=== PATIENT | female | born 2000 | race Caucasian/White ===

== ENCOUNTER 2024-11-10 12:44 | Emergency (ER) | payer OTHER ==
--- OUTSIDE RECORDS SUMMARY | 2024-11-10 12:46 | XMS REPORT | Continuity of Care Document ---
Author Name Unknown Address [address] [place] [address] [address] [facility] [place] [address] Care Team Providers Care Lamp Shades Supervisor Name Role Phone Adelita Talbot Attending Clinician Unavailable Encounters Start Date/Time End Date/Time Encounter Type Admission Type Attending Clinicians Care Facility Care Department Encounter ID Source 2022-10-13 15:01:01 Outpatient Adelita Talbot [facility] [id number] [facility]
[2024-11-10 13:33] LABS: Specific Gravity 1.026 (1.005-1.030)
[2024-11-10 13:36] LABS: Specific Gravity 1.026 (1.005-1.030); Sqamous Epithelial None Seen /HPF (None Seen); Urine Bacteria None Seen /HPF (<20); Urine Bilirubin NEGATIVE (Negative); Urine Blood 2+ (Negative); Urine Clarity Extremely Turbid (Clear); Urine Color Light-Orange (Yellow); Urine Culture Reflex Order NOT NEEDED; Urine Glucose TRACE (Negative); Urine Ketones 2+ (Negative); Urine Microscopic Reflex YN ORDER UMIC; Urine Mucus Slight /HPF (None Seen); Urine Nitrite NEGATIVE (Negative); Urine Protein 1+ (Negative); Urine RBC 21-50 /HPF (None Seen); Urine Urobilinogen Normal (Normal); Urine WBC <5 /HPF (<5)
--- NOTE | 2024-11-10 13:40 | RAD REPORT ---
EXAM: Chest Single View HISTORY: 24 years Female DYSPNEA COMPARISON: 09/21/21 FINDINGS: LUNGS/PLEURA: The lungs are clear. No pleural effusions or pneumothorax. No pulmonary edema. CARDIAC/MEDIASTINUM: The cardiac silhouette is within normal limits. UPPER ABDOMEN: No significant abnormality. BONES: No acute abnormality. LINES/TUBES/OTHER: N/A IMPRESSION: No evidence of acute cardiopulmonary disease.
[2024-11-10 13:53] LABS: Absolute Lymphocytes (CBC) 0.7 K/uL (0.7-4.9); Absolute Monocytes 0.2 K/uL (0.1-1.3); Absolute Neutrophil 10.2 K/uL (1.8-8.0); Basophils % 0.4 % (0-1.3); Eosinophils % 0.2 % (0-4.4); Hematocrit 38.7 % (36.0-45.0); Hemoglobin 13.3 g/dL (12.0-15.0); Lymphocytes % 6.3 % (15.3-44.8); MCH 29.8 pg (27.0-35.0); MCHC 34.3 g/dL (32.0-36.0); MCV 86.9 fL (80-100); MPV 8.6 fL (7.6-11.3); Monocytes % 2.1 % (3.3-12.3); Nucleated Red Blood Cells % 0.1 % (0-0); Platelets 268 thou/uL (152-406); RBC Red Blood Cell Count 4.46 M/uL (3.86-4.86); Red Cell Distribution Width 12.7 % (12.1-15.2)
[2024-11-10] MEDS ORDERED: ONDANSETRON 4 MG/2 ML VIAL ONE (13:59)
[2024-11-10] MEDS ORDERED: NA CHLORIDE 0.9% 1,000 ML ONE (14:00)
[2024-11-10] MEDS ORDERED: FAMOTIDINE 20 MG/2 ML VIAL IV ONE (14:00)
[2024-11-10 14:11] LABS: Albumin 4.4 g/dL (3.4-5.0); Albumin/Globulin Ratio 1.4 (1.1-1.8); Anion Gap 11.5 mEq/L (5.0-15.0); Bilirubin Total 0.4 mg/dL (0.2-1.0); Globulin 3.1 g/dL (2.3-3.5); Potassium 3.5 mEq/L (3.5-5.1); Protein, Total 7.5 g/dL (6.4-8.2)
--- NOTE | 2024-11-10 14:37 | RAD REPORT ---
EXAMINATION: Abdomen Pelvis W Contrast CLINICAL INDICATION: Female, 24 years old.Abd pain;Nausea / vomiting TECHNIQUE: CT abdomen and pelvis was performed, after the administration of IV contrast, as per [facility] protocol. Axial, sagittal and coronal reconstructions were obtained. One or more of the following dose reduction techniques were used: Automated exposure control, adjustment of the mA and/o r kV according to patient size, and/or iterative reconstruction. Unless otherwise specified, incidental findings do not require dedicated imaging follow-up. [id number]. COMPARISON: No prior exam. FINDINGS: LOWER CHEST: No acute process identified.No significant pericardial effusion. UPPER GI: No significant abnormality. LIVER: No significant focal abnormality. GALLBLADDER/BILE DUCTS: No biliary ductal dilatation.? PANCREAS: No mass, ductal dilation, or khloe-pancreatic fluid. SPLEEN: Unremarkable. ADRENALS: No adrenal masses. KIDNEYS AND URETERS: No hydronephrosis.No suspicious renal mass.No renal calculi. ABDOMINAL AORTA AND OTHER VESSELS: Normal caliber aorta and IVC. PERITONEUM: Small volume of pelvic free fluid which is likely physiologic. LYMPH NODES: No pathologic lymphadenopathy. ABDOMINAL WALL: Unremarkable SMALL BOWEL/COLON: Question diffuse colonic wall thickening versus underdistention.Normal appendix. URINARY BLADDER: Underdistended but grossly unremarkable. REPRODUCTIVE ORGANS: No pathologic process. MUSCULOSKELETAL: No acute or suspicious osseous abnormality. ADDITIONAL FINDINGS: None. IMPRESSION: Possible mild colitis versus underdistended colon. Normal appendix. Mild pelvic free fluid is likely physiologic.
[2024-11-10] MEDS ORDERED: PROMETHAZINE INJ 25 MG/ML AMP ONE ×2 (15:08→16:14)
[2024-11-10] MEDS ORDERED: NA CHLORIDE 0.9% 500 ML ONE (15:08)
[2024-11-10] MEDS ORDERED: NA CHLORIDE 0.9% 50 ML ONE ×2 (15:08→16:14)
[2024-11-10] MEDS ORDERED: metroNIDAZOLE 500 MG TABLET ONE (15:38)
[2024-11-10] MEDS ORDERED: CIPROFLOXACIN HCL 500 MG TAB ONE (15:38)
--- NOTE | 2024-11-10 15:55 | ER ---
Nurse's Notes [facility] Name: Elysia Morrow Age: 24 yrs Sex: Female : 2000 Arrival Date: 11/10/2024 Time: 12:44 Bed 13 Private MD: Diagnosis: Infectious gastroenteritis and colitis, unspecified Presentation: 11/10 13:12 Chief complaint: Patient states: she woke up this morning feeling to her base line, ap3 then started having abdominal pain that radiated up into her chest. patient also reports nausea and vomiting. patient reports she also started feeling short of breath. patient currently rates her pain as a 5/10 on the pain scale. Coronavirus screen: At this time, the client does not indicate any symptoms associated with coronavirus-19. Ebola Screen: No symptoms or risks identified at this time. Initial Sepsis Screen: Does the patient meet any 2 criteria? No. Patient's initial sepsis screen is negative. Does the patient have a suspected source of infection? No. Patient's initial sepsis screen is negative. Risk Assessment: Do you want to hurt yourself or someone else? Patient reports no desire to harm self or others. Onset of symptoms was November 10, 2024. 13:12 Method Of Arrival: Ambulatory ap3 13:12 Acuity: CAPRICE 3 ap3 Triage Assessment: 13:14 General: Appears ill, Behavior is calm, cooperative, appropriate for age. Pain: ap3 Complains of pain in chest and abdomen. Neuro: Level of Consciousness is awake, alert, obeys commands, Oriented to person, place, time, situation, Reports dizziness. Cardiovascular: Patient's skin is warm and dry. Respiratory: Airway is patent Respiratory effort is even, unlabored, Respiratory pattern is regular, symmetrical. GI: Reports nausea, vomiting. 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 Flu vaccine is not up to date. - Infectious Disease History:: Denies. - Social history:: Smoking status: Patient denies any tobacco usage or history of. - Family history:: not pertinent. - Hospitalizations: : No recent hospitalization is reported. Screenin:15 Abuse screen: Denies threats or abuse. Nutritional screening: No deficits noted. ap3 Tuberculosis screening: No symptoms or risk factors identified. 14:22 [facility] ED Fall Risk Assessment (Adult) History of falling in the last 3 months, cm10 including since admission No falls in past 3 months (0 pts) Confusion or Disorientation No (0 pts) Intoxicated or Sedated No (0 pts) Impaired Gait No (0 pts) Mobility Assist Device Used No (0 pt) Altered Elimination No (0 pt) Score/Fall Risk Level 0 - 2 = Low Risk Oriented to surroundings, Maintained a safe environment, Hourly rounding (assess needs \T\ fall precautionary measures) done. Assessment: 14:21 General: Appears in no apparent distress. uncomfortable, Behavior is calm, cooperative. cm10 Neuro: No deficits noted. Level of Consciousness is awake, alert, obeys commands, Oriented to person, place, time, situation, Appropriate for age. Respiratory: No deficits noted. Airway is patent Respiratory effort is even, unlabored, Respiratory pattern is regular, symmetrical. GI: Abdomen is flat, non-distended, Reports nausea, vomiting. Musculoskeletal: No deficits noted. Range of motion: intact in all extremities. 15:44 Reassessment: Patient appears in no apparent distress at this time. Patient is alert, cm10 oriented x 3, equal unlabored respirations, skin warm/dry/pink. Patient states feeling better. Patient states symptoms have improved. 16:10 Reassessment: UPON GOING TO DISCHARGE PATIENT, PATIENT NOTED TO HAVE VOMITED AGAIN. DR. cheri BEAL MADE AWARE. 17:10 Reassessment: Patient appears in no apparent distress at this time. Patient is alert, cm10 oriented x 3, equal unlabored respirations, skin warm/dry/pink. 18:20 Reassessment: Patient appears in no apparent distress at this time. Patient is alert, cm10 oriented x 3, equal unlabored respirations, skin warm/dry/pink. Patient states feeling better. Patient states symptoms have improved. Vital Signs: 13:12 BP 121 / 78; Pulse 49; Resp 18; Temp 98.8; Pulse Ox 100% on R/A; Weight 48.99 kg; ap3 Height 5 ft. 5 in. ; Pain 5/10; 14:19 BP 120 / 96; Pulse 61; Resp 18; Pulse Ox 100% ; cm10 15:00 BP 106 / 84; Pulse 79; Resp 15; Pulse Ox 100% ; cm10 15:30 BP 110 / 73; Pulse 64; Resp 15; Pulse Ox 99% ; cm10 16:00 BP 107 / 85; Pulse 55; Resp 13; Pulse Ox 100% on R/A; cm10 18:15 BP 127 / 87; Pulse 57; Resp 15; Pulse Ox 100% ; cm10 13:12 Body Mass Index 17.97 (48.99 kg, 165.1 cm) ap3 13:12 Pain Scale: Adult ap3 ED Course: 12:48 Patient arrived in ED. al6 12:49 Davis Beal MD is Attending Physician. rn 13:14 Triage completed. ap3 13:16 Arm band placed on right wrist. ap3 13:26 Patient has correct armband on for positive identification. Placed in gown. Bed in low ap3 position. Call light in reach. Side rails up X 1. Adult w/ patient. 13:26 Test, Urine Sent. ap3 13:26 Urinalysis w/ reflexes Sent. ap3 13:31 XRAY Chest (1 view) In Process Unspecified. EDMS 13:31 Client placed on continuous cardiac and pulse oximetry monitoring. NIBP monitoring ap3 applied. publicity expert on. Pulse ox on. NIBP on. 13:48 CBC with Diff Sent. cc6 13:48 CMP Sent. cc6 13:48 Lipase Sent. cc6 13:49 Initial lab(s) drawn, by me, sent to lab. EKG done, by ED staff, reviewed by Davis Beal MD. Inserted saline lock: 20 gauge in right antecubital area, using aseptic technique. Blood collected. Flushed with 10 mL NS. 13:54 Joanne Kay, RN is Primary Nurse. cm10 14:11 CT Abd/Pelvis - IV Contrast Only In Process Unspecified. EDMS 18:20 Provided Education on: Follow-up instructions. cm10 18:20 No provider procedures requiring assistance completed. IV discontinued, intact, cm10 bleeding controlled, No redness/swelling at site. Pressure dressing applied. Administered Medications: 14:17 Drug: Famotidine IVP 20 mg IVP once; dilute with 10 mL 0.9% NaCl; give over 2 minutes cm10 Route: IVP; Site: right antecubital; 15:04 Follow up: Response: No adverse reaction cm10 14:18 Drug: Ondansetron IVP 4 mg IVP once; over 2 minutes Route: IVP; Site: right antecubital;cm10 15:04 Follow up: Response: No adverse reaction cm10 14:18 Drug: NS 0.9% IV 1000 ml IV at 1 bolus Per protocol; to be given as a bolus over 60 cm10 minutes Route: IV; Rate: 1 bolus; Site: right antecubital; 15:04 Follow up: Response: No adverse reaction; IV Status: Completed infusion; IV Intake: cm10 1000ml 15:15 Drug: Promethazine IVP 12.5 mg IVP once Route: IVP; Site: right antecubital; cm10 15:43 Follow up: Response: No adverse reaction cm10 15:15 Drug: NS 0.9% IV 500 ml 500 ml IV at 1 bolus once; to be given as a bolus over 30 cm10 minutes Volume: 500 ml; Route: IV; Rate: 1 bolus; Site: right antecubital; 15:43 Follow up: Response: No adverse reaction; IV Status: Completed infusion; IV Intake: cm10 500ml 15:43 Drug: Ciprofloxacin PO 500 mg PO once Route: PO; cm10 16:01 Follow up: Response: No adverse reaction cm10 15:43 Drug: metroNIDAZOLE PO 500 mg PO once Route: PO; cm10 16:01 Follow up: Response: No adverse reaction cm10 16:01 Drug: Ondansetron Oral Disintegrating Tablet Oral Disintegrating Tablet 4 mg PO once cm10 Route: PO; 16:02 Follow up: Response: No adverse reaction cm10 16:18 Drug: Promethazine IVP 12.5 mg IVP once Route: IVP; Site: right antecubital; cm10 18:19 Follow up: Response: No adverse reaction cm10 Medication: 18:20 VIS not applicable for this client. cm10 Intake: 15:04 IV: 1000ml; Total: 1000ml. cm10 15:43 IV: 500ml; Total: 1500ml. cm10 Outcome: 15:54 Discharge ordered by rn 17:44 Discharge ordered by rn 18:20 Discharged to home ambulatory, with family, cm10 18:20 Condition: good 18:20 Discharge instructions given to patient, Instructed on discharge instructions, follow up and referral plans. medication usage, Demonstrated understanding of instructions, follow-up care, medications, Prescriptions given X 3, 18:21 Patient left the ED. cm10 Signatures: Dispatcher [employer] EDMS Davis Beal MD MD rn Prokisch, Amanda, RN RN ap3 Joanne Kay RN RN cm10 Cee Dailey cc6 Mady Hilario6 Corrections: (The following items were deleted from the chart) 13:15 13:12 Chief complaint: Patient states: she woke up this morning feeling to her base ap3 line, then started having abdominal pain that radiated up into her chest. patient reports she also started feeling short of breath. patient currently rates her pain as a 5/10 on the pain scale ap3
--- NOTE | 2024-11-10 15:55 | EDPHYS ---
Physician Documentation [facility] Name: Elysia Morrow Age: 24 yrs Sex: Female : 2000 Arrival Date: 11/10/2024 Time: 12:44 Bed 13 Private MD: ED Physician Davis Beal HPI: 11/10 14:34 This 24 yrs old Female presents to ER via Ambulatory with complaints of rn Nausea/Vomiting, Breathing Difficulty. 14:34 The patient presents to the emergency department with nausea. Onset: The rn symptoms/episode began/occurred this morning. The symptoms are aggravated by nothing. The symptoms are alleviated by nothing. The patient has experienced similar episodes in the past. Patient reports went to bed fine and woke up fine, shortly after waking up began to feel short of breath, feels like needs to take extra air at the end of her breathing. Also reports nausea and mild abdominal cramping. Patient started her menstrual cycle so not sure if she is having cramps related to menstruation. Patient states also this has happened a couple times in the past and has been told it was anxiety and feels very similar to those episodes. Denies any fever or chills. No blood in emesis or stool.. 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 Flu vaccine is not up to date. - Infectious Disease History:: Denies. - Social history:: Smoking status: Patient denies any tobacco usage or history of. - Family history:: not pertinent. - Hospitalizations: : No recent hospitalization is reported. ROS: 14:34 Constitutional: Negative for fever, chills, and weight loss, Cardiovascular: Negative rn for chest pain, palpitations, and edema, Respiratory: Negative for cough, positive for shortness of breath Abdomen/GI: Positive for nausea MS/Extremity: Negative for injury and deformity, Skin: Negative for injury, rash, and discoloration, Neuro: Negative for headache, weakness, numbness, tingling, and seizure, Exam: 14:34 Constitutional: This is a well developed, well nourished patient who is awake, alert, rn and in no acute distress. Ambulatory from bathroom without assistance or distress. Appears pale and thin Head/Face: Normocephalic, atraumatic. ENT: Dry mucous membranes Cardiovascular: Regular rate and rhythm. No pulse deficits. Respiratory: No increased work of breathing, no retractions or nasal flaring. Abdomen/GI: Soft, mid abdominal tenderness without rebound or guarding Neuro: Awake and alert, GCS 15 16:58 ECG was reviewed by the Attending Physician. rn Vital Signs: 13:12 BP 121 / 78; Pulse 49; Resp 18; Temp 98.8; Pulse Ox 100% on R/A; Weight 48.99 kg; ap3 Height 5 ft. 5 in. ; Pain 5/10; 14:19 BP 120 / 96; Pulse 61; Resp 18; Pulse Ox 100% ; cm10 15:00 BP 106 / 84; Pulse 79; Resp 15; Pulse Ox 100% ; cm10 15:30 BP 110 / 73; Pulse 64; Resp 15; Pulse Ox 99% ; cm10 16:00 BP 107 / 85; Pulse 55; Resp 13; Pulse Ox 100% on R/A; cm10 18:15 BP 127 / 87; Pulse 57; Resp 15; Pulse Ox 100% ; cm10 13:12 Body Mass Index 17.97 (48.99 kg, 165.1 cm) ap3 13:12 Pain Scale: Adult ap3 MDM: 12:49 Medical Screening Exam initiated rn 15:52 Differential diagnosis: Nonspecific abd pain, gastritis, cholecystitis, pancreatitis, rn appendicitis, diverticulitis, viral gastroenteritis, gastroenteritis. Data reviewed: vital signs, nurses notes, lab test result(s), radiologic studies, CT scan, and as a result, I will discharge patient. Data reviewed: radiologic studies, plain films. Counseling: I had a detailed discussion with the patient and/or guardian regarding the historical points, exam findings, and any diagnostic results supporting the discharge/admit diagnosis, lab results, radiology results, the need for outpatient follow up, to return to the emergency department if symptoms worsen or persist or if there are any questions or concerns that arise at home. Special discussion: I discussed with the patient/guardian in detail that at this point there is no indication for admission to the hospital. It is understood, however, that if the symptoms persist or worsen the patient needs to return immediately for re-evaluation. ED course: CT shows possible colitis. Patient feels much better with fluids and nausea medication. Able to tolerate fluids and antibiotics. Will discharge home with antibiotics and as needed Zofran with return precautions.. 16:56 ED course: Patient throughout when attempting to discharge. Cancel discharge and rn remedicated. Will continue to observe. 17:43 ED course: Patient states feels better now and wants to go home. Will discharge home rn with return precautions.. 11/10 13:10 Order name: CBC with Diff; Complete Time: 14:03 rn 11/10 13:10 Order name: CMP; Complete Time: 14:14 rn 11/10 13:10 Order name: Lipase; Complete Time: 14:14 rn 11/10 13:10 Order name: Test, Urine; Complete Time: 14:03 rn 11/10 13:10 Order name: Urinalysis w/ reflexes; Complete Time: 14:03 rn 11/10 13:10 Order name: CT Abd/Pelvis - IV Contrast Only; Complete Time: 14:45 rn 11/10 13:10 Order name: XRAY Chest (1 view); Complete Time: 14:03 rn 11/10 13:10 Order name: IV Saline Lock; Complete Time: 13:48 rn 11/10 13:10 Order name: Labs collected and sent; Complete Time: 13:48 rn 11/10 13:11 Order name: EKG - Nurse/Tech; Complete Time: 13:48 rn EC:58 Rate is 47 beats/min. Rhythm is regular. QRS [place] is Normal. PA interval is normal. QRS rn interval is normal. QT interval is normal. No Q waves. T waves are Normal. No ST changes noted. Clinical impression: Sinus bradycardia. Interpreted by me. Reviewed by me. Administered Medications: 14:17 Drug: Famotidine IVP 20 mg IVP once; dilute with 10 mL 0.9% NaCl; give over 2 minutes cm10 Route: IVP; Site: right antecubital; 15:04 Follow up: Response: No adverse reaction cm10 14:18 Drug: Ondansetron IVP 4 mg IVP once; over 2 minutes Route: IVP; Site: right antecubital;cm10 15:04 Follow up: Response: No adverse reaction cm10 14:18 Drug: NS 0.9% IV 1000 ml IV at 1 bolus Per protocol; to be given as a bolus over 60 cm10 minutes Route: IV; Rate: 1 bolus; Site: right antecubital; 15:04 Follow up: Response: No adverse reaction; IV Status: Completed infusion; IV Intake: cm10 1000ml 15:15 Drug: Promethazine IVP 12.5 mg IVP once Route: IVP; Site: right antecubital; cm10 15:43 Follow up: Response: No adverse reaction cm10 15:15 Drug: NS 0.9% IV 500 ml 500 ml IV at 1 bolus once; to be given as a bolus over 30 cm10 minutes Volume: 500 ml; Route: IV; Rate: 1 bolus; Site: right antecubital; 15:43 Follow up: Response: No adverse reaction; IV Status: Completed infusion; IV Intake: cm10 500ml 15:43 Drug: Ciprofloxacin PO 500 mg PO once Route: PO; cm10 16:01 Follow up: Response: No adverse reaction cm10 15:43 Drug: metroNIDAZOLE PO 500 mg PO once Route: PO; cm10 16:01 Follow up: Response: No adverse reaction cm10 16:01 Drug: Ondansetron Oral Disintegrating Tablet Oral Disintegrating Tablet 4 mg PO once cm10 Route: PO; 16:02 Follow up: Response: No adverse reaction cm10 16:18 Drug: Promethazine IVP 12.5 mg IVP once Route: IVP; Site: right antecubital; cm10 18:19 Follow up: Response: No adverse reaction cm10 Disposition Summary: 11/10/24 17:44 Discharge Ordered Notes: Location: Home(11/10/24 17:44) rn Problem: new(11/10/24 17:44) rn Symptoms: have improved(11/10/24 17:44) rn Condition: Stable(11/10/24 17:44) rn Diagnosis - Infectious gastroenteritis and colitis, unspecified(11/10/24 17:44) rn Followup: rn - With: Private Physician - When: As needed - Reason: Recheck today's complaints, Re-evaluation by your physician Discharge Instructions: - Discharge Summary Sheet rn - Nausea and Vomiting, Adult rn - Colitis rn Forms: - Medication Reconciliation Form rn - Antibiotic rn intake - Prescription Opioid Use rn - Patient Portal Instructions rn - Leadership Thank You Letter rn Prescriptions: - ondansetron 4 mg Oral Tablet,disintegrating - take 1 tablet ORAL route every 8 hours As needed; 12 tablet; Refills: 0, rn Product Selection Permitted - Flagyl 500 mg Oral Tablet - take 1 tablet ORAL route every 8 hours for 10 days; 30 tablet; Refills: 0, rn Product Selection Permitted - Cipro 500 mg Oral tablet - take 1 tablet ORAL route every 12 hours for 10 days; 20 tablet; Refills: 0, rn Product Selection Permitted Signatures: Dispatcher [employer] Davis Hughes MD MD rn Prokisch, Amanda RN RN ap3 Joanne Kay, RN RN cm10 Corrections: (The following items were deleted from the chart) 16:13 15:54 Home rn rn 16: 15:54 new rn rn 16: 15:54 have improved rn rn 16: 15:54 Stable rn rn 16: 15:54 Infectious gastroenteritis and colitis, unspecified rn rn
[2024-11-10] MEDS ORDERED: ONDANSETRON 4 MG (ODT) TAB ONE (16:00)
[2024-11-10 18:30] VITALS: TEMP 98.8
[2024-11-10 18:48] VITALS: O2SAT 100
[2024-11-10 18:49] VITALS: BP 127/87
--- NOTE | 2024-11-13 11:29 | EKG ---
Test Date: 2024-11-10 Test Time: 13:35:34 Value Analysis Coordinator: TRAM MEASUREMENT RESULTS: Intervals: Rate: 47 WA: 144 QRSD: 80 QT: 498 QTc: 440 [place]: P: 77 WA: 144 QRS: 83 T: 78 INTERPRETIVE STATEMENTS: Sinus bradycardia Otherwise normal ECG Compared to ECG 09/21/2021 20:48:30 Sinus rhythm no longer present Sinus arrhythmia no longer present Electronically Signed On 11-13-24 11:22:12 CDT by Carlitos Felder
== END 2024-11-10 18:21 | disposition home or self-care (01) ==
LOC: ER 12:44
DX: A09 Infectious gastroenteritis and colitis, unspecified (principal); Z28.310 Unvaccinated for COVID-19
CPT/HCPCS: 96361; 93005; 85025; 81001; 36415; 81025; 83690; 80053; 74177; 71045; 96375; 96374; 99285; Q9967; J2550 ×2; Q0162; J2405; J7040; J7030